=== PATIENT | female | born 1965 | race Caucasian/White ===

== ENCOUNTER 2017-02-12 16:11 | Outpatient (CLI) | payer BC ==
[~2017-02-12 16:11] MED LIST: LIP20 PO; LISI-600 PO; RIVA10TA PO
== END 2017-02-12 19:24 | disposition home or self-care (01) ==
LOC: SMA 16:11
PROVIDERS: ATTEND Family Medicine
DX: Z12.31 Encounter for screening mammogram for malignant neoplasm of breast (principal)
CPT/HCPCS: G0202